=== PATIENT | female | born 1955 | race Caucasian/White ===

== ENCOUNTER 2018-08-18 06:57 | Inpatient (IN) | payer BC ==
[~2018-08-18] VITALS: Ht 160 cm; Wt 52.0 kg
[2018-08-18 08:20] VITALS: PULSE 79
[2018-08-18] MEDS ORDERED: NACL 0.9% 3 ML SYG IV SCH (09:30)
[2018-08-18] MEDS ORDERED: ONDANSETRON 4 MG INJ IV PRN (09:30)
[2018-08-18 10:00] VITALS: BP 108/67; PULSE 67; RESP 16
[2018-08-18] MEDS ORDERED: ALBUTEROL 0.083% (NEB) 2.5 MG/3 ML AMP HHN PRN (10:00)
--- NOTE | 2018-08-18 10:17 | HP ---
Date/Time of Note Date/Time of Note DATE: 08/18/18 TIME: 10:04 Assessment/Plan VTE Prophylaxis SCD applied (from Nsg): Yes Pharmacological prophylaxis: LMWH Assessment/Plan Assessment/Plan 1. Acute hypoxic respiratory failure - Patient has been desaturation to the mid 80% with exertion - Pulmonology consultation placed for further recommendations - continue on nebs and steroids. No infectious process appreciated and imaging studies at OSH negative for PNA - continue monitoring O2 saturations and wean as tolerated 2. HTN - continue home medications and adjust as needed 3. Prediabetes - will check A1c - ISS anc accuchecks for now 4. Cough - PRN antitussive 5. Diet - Carb/cardiac 6. DVT ppx - LMWH 7. Disposition - Admit for pulmonology workup given persistent cough, shortness of breath, and hypoxia. HPI/ROS Admit Date/Time Admit Date/Time Aug 18, 2018 at 08:01 Hx of Present Illness 62 yo F with PMH HTN and prediabetes presented to [facility] secondary worsening cough and shortness of breath that has been ongoing since January. Patient states she has been experiencing a cough with clear/yellow productive sputum and occasional episodes of blood tinged. She has associated chest discomfort with the cough that radiates to her back. She denies any fevers, chills, nausea, vo miting, dizziness, history of asthma, or GI symptoms. She does admit to pneumonia 2 years ago but denies any respiratory issues since. She denies any recent sick contact or recent travel. She was seen by a document design specialist in June and prescribed inhalers. She has an appointment on Saturday for follow up but unsure physicians name. She was found hypoxic with O2 saturation 86% on RA at OSH and given neb treatment and supplemental O2 with improvement in symptoms. Patient had CXR that was negative and CTA performed which showed mild interstitial edema. She was given Lasix prior to transfer. EKG were negative for acute ST changes. ROS All 12 systems reviewed and pertinent positives as per HPI. All others negative. Constitutional: febrile; No chills, No fatigue Eyes: No discharge ENT: No congestion Respiratory: cough, pleuritic pain, shortness of breath, sputum, wheezing Cardiovascular: chest pain; No edema, No lightheadedness, No palpitations Gastrointestinal: No pain, No constipation, No diarrhea, No nausea, No vomiting Genitourinary: no complaints Musculoskeletal: back pain; No neck pain Skin: No bruising, No laceration, No rash Neurologic: No confusion, No focal-weakness, No headache, No syncope Endocrine: no complaints Lymphatic: no complaints Psychological: nl mood/affect Immunologic: no complaints PMH/Family/Social Past Medical History Medical History: hypertension, other (prediabetes) Medications Current Medications IV Flush (NS 3 ml) 3 ml PER PROTOCOL IV ; Start 08/18/18 at 09:30; Status UNV Ondansetron HCl (Zofran Inj) 4 mg Q6H PRN IV NAUSEA/VOMITING; Start 08/18/18 at 09:30; Status UNV Acetaminophen (Tylenol Tab) 650 mg Q6H PRN PO .PAIN 1-3 OR TEMP; Start 08/18/18 at 09:30; Status UNV Albuterol (Proventil 0.083% (Neb)) 2.5 mg Q2H RESP THERAPY PRN HHN SHORTNESS OF BREATH; Start 08/18/18 at 10:00; Status UNV Albuterol (Proventil 0.083% (Neb)) 2.5 mg Q6HWA RESP THERAPY HHN ; Start 08/18/18 at 14:00; Status UNV Guaifenesin/ Codeine Phosphate (Robitussin Ac Liquid Cup) 10 ml Q4H PRN PO cough with pain; Start 08/18/18 at 10:00; Status UNV Coded Allergies: No Known Allergy (Unverified , 08/18/18) Past Surgical History Past Surgical Hx: other (MARGARITA) Family History Significant Family History: no pertinent family hx Social History Alcohol Use: none Smoking Status: Never smoker Drug Use: none Exam/Review of Systems Exam Exam General: Patient is laying in bed and answers questions appropriately. distress with coughing due to pain Mentation: Patient is alert and oriented Head: Normocephalic atraumatic Eyes: EOMI, pupils reactive to light Neck: Supple, nontender, midline Respiratory: Diminished air entry, Mild expiratory wheezing, Cardiovascular: regular rate and rhythm, no obvious murmurs Gastrointestinal: soft, non-tender to palpation, bowel sounds heard. no rebound or guarding Neurological: Moves all extremities spontaneously Skin: No new skin lesions Additional Comments Home medications reviewed OSH CXR- negative for acute issues CTA- mild interstitial pulmonary edema TALISHA GORDON MD Aug 18, 2018 10:17
[2018-08-18 10:26] VITALS: Ht 160 cm; Wt 52.0 kg
[2018-08-18] MEDS ORDERED: morphine 2 MG INJ IV PRN (10:30)
[2018-08-18] MEDS ORDERED: KETOROLAC 15 MG INJ IV PRN (10:30)
[2018-08-18] MEDS ORDERED: traMADol 50 MG TAB PO PRN (10:30)
[2018-08-18] MEDS ORDERED: FLUO20CA22 PO (11:22)
[2018-08-18] MEDS ORDERED: MONT10TA24 PO (11:22)
[2018-08-18] MEDS ORDERED: D-ME473S2 PO (11:22)
[2018-08-18] MEDS ORDERED: HYDR25TA6 PO (11:22)
[2018-08-18] MEDS ORDERED: AMLO-147 PO (11:22)
[2018-08-18] MEDS ORDERED: FLUT100B INHALATION (11:22)
[2018-08-18] MEDS ORDERED: ALBU2.5V3 NEB (11:22)
[2018-08-18 12:00] VITALS: PULSE 63
[2018-08-18] MEDS: ACETAMINOPHEN 325 MG TAB PO PRN (12:25)
[2018-08-18] MEDS: ALBUTEROL 0.083% (NEB) 2.5 MG/3 ML AMP HHN SCH ×2 (15:53→20:19)
[2018-08-18] MEDS ORDERED: GLUCOSE GEL 15 GRAM TUBE BUCCAL PRN (18:00)
[2018-08-18] MEDS ORDERED: GLUCOSE GEL 15 GRAM TUBE PO PRN ×2 (18:00)
[2018-08-18] MEDS ORDERED: GLUCAGON 1 MG INJ IM PRN (18:00)
[2018-08-18] MEDS ORDERED: DEXTROSE 50% 50 ML SYRINGE IV PRN ×2 (18:00)
[2018-08-18] MEDS: INSULIN ASPART [NOVOLOG] 3 ML PEN SC SCH ×2 (18:07→21:00)
[2018-08-18 20:31] VITALS: BP 101/57; PULSE 75; RESP 18
[2018-08-18] MEDS: MONTELUKAST 10 MG TAB PO SCH (21:19)
[2018-08-18] MEDS: METHYLPREDNISOLONE 40 MG INJ IV SCH (21:20)
[2018-08-19 01:10] VITALS: BP 102/55; PULSE 68; RESP 18
[2018-08-19 07:14] VITALS: BP 113/70; PULSE 73; RESP 14
[2018-08-19] MEDS: ALBUTEROL 0.083% (NEB) 2.5 MG/3 ML AMP HHN SCH ×3 (07:27→21:30)
[2018-08-19] MEDS: INSULIN ASPART [NOVOLOG] 3 ML PEN SC SCH (07:50)
--- NOTE | 2018-08-19 08:42 | CONS ---
Assessment/Plan Assessment/Plan Assessment/Plan (Daily) Chest x-ray was reviewed from [facility] which is essentially unremarkable. CT chest showing very minimal interstitial prominence. Assessment recommendations; 1. Patient admitted for symptoms of bronchitis spanning 5 months possibly from underlying asthma. Clinically improving on current treatment regimen. 2. History of hypertension. 3. History of prediabetes. Continue current supportive care. Patient improving on current treatment regimen. Consultation Date/Type/Reason Admit Date/Time Aug 18, 2018 at 08:01 Date of Consultation: Aug 19, 2018 Type of Consult Pulmonary Patient is a pleasant 62-year-old lady who was transferred from [facility] due to insurance reasons, where she presented with a few months history of wheezing, coughing and sputum production. Patient also has had episodes of blood-tinged sputum after several bouts of hacking cough. She denies any fever, chills, chest pain, body aches or myalgias. By the time I saw her, patient appears comfortable and according to her she has improved on current treatment regimen. Cough as well as wheezing are improving. Denies any further hemoptysis. Past medical history; 1. History of hypertension 2. Prediabetes. Medications; reviewed. Allergies; none. Social history; patient never smoked. Family history; noncontributory. Occupational history; patient has been a housewife. Review of systems; denies any headache, seizures, visual changes. Any sinus symptoms. Coughing, chest congestion are improving. Denies any further hemoptysis. Denies any body aches or myalgias, denies any fever. Denies any abdominal pain, nausea vomiting. Denies any melena or hematochezia. Denies any edema orthopnea. Any weight loss. Denies any urinary symptoms. General exam; elderly female, awake alert, currently no distress. Date/Time of Note DATE: 08/19/18 TIME: 08:38 Past Medical History Medical History: hypertension, other (prediabetes) Home Meds Reported Medications Albuterol Sulfate* (Albuterol Sulfate* Neb) 0.083%-3 Ml Neb, 2.5 MG NEB Q4H, #30 VIAL 08/18/18 Fluticasone Furoate (Arnuity Ellipta) 100 Mcg Blst.w.dev, 100 MCG INHALATION DAILY, #1 INHALER 08/18/18 Dextromethorphan Hb-Promethazine Hcl* (Promethazine DM* Syrup) 473 Ml Syrup, 5 ML PO Q6 PRN for COUGH, ML 08/18/18 Hydrochlorothiazide* (Hydrochlorothiazide*) 25 Mg Tab, 25 MG PO DAILY, #30 TAB 08/18/18 Fluoxetine Hcl* (Fluoxetine Hcl*) 20 Mg Capsule, 20 MG PO DAILY, CAP 08/18/18 Montelukast Sodium* (Montelukast Sodium*) 10 Mg Tablet, 10 MG PO QHS, #30 TAB 08/18/18 Amlodipine Besylate* (Amlodipine Besylate*) 10 Mg Tablet, 10 MG PO DAILY, #30 TAB 08/18/18 Medications Current Medications IV Flush (NS 3 ml) 3 ml PER PROTOCOL IV ; Start 08/18/18 at 09:30 Ondansetron HCl (Zofran Inj) 4 mg Q6H PRN IV NAUSEA/VOMITING; Start 08/18/18 at 09:30 Acetaminophen (Tylenol Tab) 650 mg Q6H PRN PO .PAIN 1-3 OR TEMP Last administ ered on 08/18/18at 12:25; Admin Dose 650 MG; Start 08/18/18 at 09:30 Albuterol (Proventil 0.083% (Neb)) 2.5 mg Q2H RESP THERAPY PRN HHN SHORTNESS OF BREATH; Start 08/18/18 at 10:00 Albuterol (Proventil 0.083% (Neb)) 2.5 mg Q6HWA RESP THERAPY HHN Last administered on 08/19/18at 07:27; Admin Dose 2.5 MG; Start 08/18/18 at 14:00 Guaifenesin/ Codeine Phosphate (Robitussin Ac Liquid Cup) 10 ml Q4H PRN PO cough with pain; Start 08/18/18 at 10:00 Ketorolac Tromethamine (Toradol) 15 mg Q6H PRN IV PAIN; Start 08/18/18 at 10:30; Stop 08/21/18 at 10:29 Tramadol HCl (Ultram) 50 mg Q6H PRN PO MODERATE PAIN LEVEL 4-6; Start 08/18/18 at 10:30 Morphine Sulfate (morphine) 2 mg Q4H PRN IV SEVERE PAIN LEVEL 7-10; Start 08/18/18 at 10:30 Amlodipine Besylate (Norvasc) 10 mg DAILY PO ; Start 08/19/18 at 09:00 Fluoxetine HCl (Prozac) 20 mg DAILY PO ; Start 08/19/18 at 09:00 Montelukast Sodium (Singulair) 10 mg QHS PO Last administered on 08/18/18at 21:19; Admin Dose 10 MG; Start 08/18/18 at 21:00 Miscellaneous Information 100 mcg DAILY INHALATION ; Start 08/19/18 at 09:00; Status UNV Insulin Aspart (Novolog Insulin Pen) NOVOLOG *MILD* ALGORITHM WITH MEALS BEDTIME SC ; Start 08/18/18 at 18:30 Methylprednisolone Sodium Succinate (Solu-Medrol) 40 mg Q12 IV Last administered on 08/18/18at 21:20; Admin Dose 40 MG; Start 08/18/18 at 21:00 Miscellaneous Information 1 ea NOTE XX ; Start 08/18/18 at 18:00 Glucose (Glutose) 15 gm Q15M PRN PO DECREASED GLUCOSE; Start 08/18/18 at 18:00 Glucose (Glutose) 22.5 gm Q15M PRN PO DECREASED GLUCOSE; Start 08/18/18 at 18:00 Dextrose (D50w Syringe) 25 ml Q15M PRN IV DECREASED GLUCOSE; Start 08/18/18 at 18:00 Dextrose (D50w Syringe) 50 ml Q15M PRN IV DECREASED GLUCOSE; Start 08/18/18 at 18:00 Glucagon (Glucagen) 1 mg Q15M PRN IM DECREASED GLUCOSE; Start 08/18/18 at 18:00 Glucose (Glutose) 15 gm Q15M PRN BUCCAL DECREASED GLUCOSE; Start 08/18/18 at 18:00 Allergies: Coded Allergies: No Known Allergy (Unverified , 08/18/18) Past Surgical History Past Surgical Hx: other (MARGARITA) Social History Alcohol Use: none Smoking Status: Never smoker Drug Use: none Exam/Review of Systems Exam Vitals Vital Signs Date Temp Pulse Resp B/P (MAP) Pulse Ox O2 O2 Flow FiO2 Time Delivery Rate 08/19/18 65 20 98 Nasal 3.0 07:27 Cannula 08/19/18 98.3 113/70 07:14 (84) 08/18/18 30 20:19 Intake and Output 08/18/18 08/18/18 08/19/18 1515:00 23:00 07:00 IntakeIntake Total 125 ml 240 ml BalanceBalance 125 ml 240 ml Exam H EENT exam; supple neck, no JVD. No lymphadenopathy. Midline trachea. No thyromegaly. Pharynx is clear. No neck bruits. Patient has fair dentition. Nasal passages are normal. Chest exam; diminished but clear breath sounds. S1-S2 audible, no murmurs. Regular rhythm. Abdomen exam; soft, no organomegaly. Bowel sounds audible. Extremity exam; no peripheral edema clubbing. TOWEL FOLDER exam; no focal deficit. Results Result Diagram: 08/19/18 0446 08/19/18 0446 Results 24hrs Laboratory Tests Test 08/18/18 10:13 08/18/18 18:05 08/18/18 21:15 08/19/18 04:46 Bedside Glucose 138 117 126 White Blood Count 10.2 Red Blood Count 4.44 Hemoglobin 14.1 Hematocrit 41.5 Mean Corpuscular Volume 93.5 Mean Corpuscular 31.8 Hemoglobin Mean Corpuscular 34.0 Hemoglobin Concent Red Cell Distribution 13.3 Width Platelet Count 350 Mean Platelet Volume 9.9 Immature Granulocytes % 0.400 Neutrophils % 87.1 H Lymphocytes % 10.9 L Monocytes % 1.5 Eosinophils % 0.0 Basophils % 0.1 Nucleated Red Blood 0.0 Cells % Immature Granulocytes # 0.040 H Neutrophils # 8.9 H Lymphocytes # 1.1 Monocytes # 0.2 L Eosinophils # 0.0 Basophils # 0.0 Nucleated Red Blood 0.0 Cells # Sodium Level 144 Potassium Level 3.8 Chloride Level 104 Carbon Dioxide Level 27 Anion Gap 13 Blood Urea Nitrogen 26 H Creatinine 0.76 Est Glomerular Filtrat > 60 Rate mL/min Glucose Level 139 Hemoglobin A1c 5.3 Calcium Level 9.8 Magnesium Level 2.4 Total Bilirubin 0.1 L Direct Bilirubin 0.00 Indirect Bilirubin 0.1 Aspartate Amino 27 Transf (AST/SGOT) Alanine 23 Aminotransferase (ALT/SG PT) Alkaline Phosphatase 80 Total Protein 7.2 Albumin 4.0 Globulin 3.20 Albumin/Globulin Ratio 1.25 Test 08/19/18 08:30 Bedside Glucose 120 Medications Medication Current Medications IV Flush (NS 3 ml) 3 ml PER PROTOCOL IV ; Start 08/18/18 at 09:30 Ondansetron HCl (Zofran Inj) 4 mg Q6H PRN IV NAUSEA/VOMITING; Start 08/18/18 at 09:30 Acetaminophen (Tylenol Tab) 650 mg Q6H PRN PO .PAIN 1-3 OR TEMP Last administered on 08/18/18at 12:25; Admin Dose 650 MG; Start 08/18/18 at 09:30 Albuterol (Proventil 0.083% (Neb)) 2.5 mg Q2H RESP THERAPY PRN HHN SHORTNESS OF BREATH; Start 08/18/18 at 10:00 Albuterol (Proventil 0.083% (Neb)) 2.5 mg Q6HWA RESP THERAPY HHN Last administered on 08/19/18at 07:27; Admin Dose 2.5 MG; Start 08/18/18 at 14:00 Guaifenesin/ Codeine Phosphate (Robitussin Ac Liquid Cup) 10 ml Q4H PRN PO cough with pain; Start 08/18/18 at 10:00 Ketorolac Tromethamine (Toradol) 15 mg Q6H PRN IV PAIN; Start 08/18/18 at 10:30; Stop 08/21/18 at 10:29 Tramadol HCl (Ultram) 50 mg Q6H PRN PO MODERATE PAIN LEVEL 4-6; Start 08/18/18 at 10:30 Morphine Sulfate (morphine) 2 mg Q4H PRN IV SEVERE PAIN LEVEL 7-10; Start 08/18/18 at 10:30 Amlodipine Besylate (Norvasc) 10 mg DAILY PO ; Start 08/19/18 at 09:00 Fluoxetine HCl (Prozac) 20 mg DAILY PO ; Start 08/19/18 at 09:00 Montelukast Sodium (Singulair) 10 mg QHS PO Last administered on 08/18/18at 21:19; Admin Dose 10 MG; Start 08/18/18 at 21:00 Miscellaneous Information 100 mcg DAILY INHALATION ; Start 08/19/18 at 09:00; Status UNV Insulin Aspart (Novolog Insulin Pen) NOVOLOG *MILD* ALGORITHM WITH MEALS BEDTIME SC ; Start 08/18/18 at 18:30 Methylprednisolone Sodium Succinate (Solu-Medrol) 40 mg Q12 IV Last administered on 08/18/18at 21:20; Admin Dose 40 MG; Start 4/1/19 at 21:00 Miscellaneous Information 1 ea NOTE XX ; Start 08/18/18 at 18:00 Glucose (Glutose) 15 gm Q15M PRN PO DECREASED GLUCOSE; Start 08/18/18 at 18:00 Glucose (Glutose) 22.5 gm Q15M PRN PO DECREASED GLUCOSE; Start 08/18/18 at 18:00 Dextrose (D50w Syringe) 25 ml Q15M PRN IV DECREASED GLUCOSE; Start 08/18/18 at 18:00 Dextrose (D50w Syringe) 50 ml Q15M PRN IV DECREASED GLUCOSE; Start 08/18/18 at 18:00 Glucagon (Glucagen) 1 mg Q15M PRN IM DECREASED GLUCOSE; Start 08/18/18 at 18:00 Glucose (Glutose) 15 gm Q15M PRN BUCCAL DECREASED GLUCOSE; Start 08/18/18 at 18:00 WENDIE SALCIDO Aug 19, 2018 08:42
--- NOTE | 2018-08-19 08:52 | PN ---
Date/Time of Note Date/Time of Note DATE: 08/19/18 TIME: 08:52 Assessment/Plan VTE Prophylaxis Risk score (from Nsg)>0 risk: 1 SCD applied (from Nsg): Yes Pharmacological prophylaxis: LMWH Lines/Catheters IV Catheter Type (from Nrsg): Saline Lock Urinary Cath still in place: No Assessment/Plan Assessment/Plan 1. Acute hypoxic respiratory failure- improving - Will taper steroids and continue Zpack per Pulm recommendations - Doing well on room air - Pulm on board and appreciate recommendations - Continue on nebs 2. HTN - continue home medications and adjust as needed 3. Prediabetes - A1c noted. no ISS needed 4. Cough - PRN antitussive 5. Disposition - If no acute issues, will d/c home in the next 24-48 hours Result Diagram: 08/19/18 0446 08/19/18 0446 Results 24hrs Laboratory Tests Test 08/18/18 10:13 08/18/18 18:05 08/18/18 21:15 08/19/18 04:46 Bedside Glucose 138 117 126 White Blood Count 10.2 Red Blood Count 4.44 Hemoglobin 14.1 Hematocrit 41.5 Mean Corpuscular Volume 93.5 Mean Corpuscular 31.8 Hemoglobin Mean Corpuscular 34.0 Hemoglobin Concent Red Cell Distribution 13.3 Width Platelet Count 350 Mean Platelet Volume 9.9 Immature Granulocytes % 0.400 Neutrophils % 87.1 H Lymphocytes % 10.9 L Monocytes % 1.5 Eosinophils % 0.0 Basophils % 0.1 Nucleated Red Blood 0.0 Cells % Immature Granulocytes # 0.040 H Neutrophils # 8.9 H Lymphocytes # 1.1 Monocytes # 0.2 L Eosinophils # 0.0 Basophils # 0.0 Nucleated Red Blood 0.0 Cells # Sodium Level 144 Potassium Level 3.8 Chloride Level 104 Carbon Dioxide Level 27 Anion Gap 13 Blood Urea Nitrogen 26 H Creatinine 0.76 Est Glomerular Filtrat > 60 Rate mL/min Glucose Level 139 Hemoglobin A1c 5.3 Calcium Level 9.8 Magnesium Level 2.4 Total Bilirubin 0.1 L Direct Bilirubin 0.00 Indirect Bilirubin 0.1 Aspartate Amino 27 Transf (AST/SGOT) Alanine 23 Aminotransferase (ALT/SG PT) Alkaline Phosphatase 80 Total Protein 7.2 Albumin 4.0 Globulin 3.20 Albumin/Globulin Ratio 1.25 Test 08/19/18 08:30 Bedside Glucose 120 Subjective 24 Hr Interval Summary Free Text/Dictation Patient feeling better but still with cough. Less SOB this am. No acute ove rnight events. Exam/Review of Systems Exam Vitals Vital Signs Date Temp Pulse Resp B/P (MAP) Pulse Ox O2 O2 Flow FiO2 Time Delivery Rate 08/19/18 65 20 98 Nasal 3.0 07:27 Cannula 08/19/18 98.3 113/70 07:14 (84) 08/18/18 30 20:19 Intake and Output 08/18/18 08/18/18 08/19/18 1515:00 23:00 07:00 IntakeIntake Total 125 ml 240 ml BalanceBalance 125 ml 240 ml Exam General: Patient is laying in bed and answers questions appropriately. no acute distress Neck: Supple, nontender, midline Respiratory: Diminished air entry, no wheezing or rhonchi Cardiovascular: regular rate and rhythm, no obvious murmurs Gastrointestinal: soft, non-tender to palpation, bowel sounds heard. no rebound or guarding Neurological: Moves all extremities spontaneously Skin: No new skin lesions Results Results 24hrs Laboratory Tests Test 08/18/18 10:13 08/18/18 18:05 08/18/18 21:15 08/19/18 04:46 Bedside Glucose 138 117 126 White Blood Count 10.2 Red Blood Count 4.44 Hemoglobin 14.1 Hematocrit 41.5 Mean Corpuscular Volume 93.5 Mean Corpuscular 31.8 Hemoglobin Mean Corpuscular 34.0 Hemoglobin Concent Red Cell Distribution 13.3 Width Platelet Count 350 Mean Platelet Volume 9.9 Immature Granulocytes % 0.400 Neutrophils % 87.1 H Lymphocytes % 10.9 L Monocytes % 1.5 Eosinophils % 0.0 Basophils % 0.1 Nucleated Red Blood 0.0 Cells % Immature Granulocytes # 0.040 H Neutrophils # 8.9 H Lymphocytes # 1.1 Monocytes # 0.2 L Eosinophils # 0.0 Basophils # 0.0 Nucleated Red Blood 0.0 Cells # Sodium Level 144 Potassium Level 3.8 Chloride Level 104 Carbon Dioxide Level 27 Anion Gap 13 Blood Urea Nitrogen 26 H Creatinine 0.76 Est Glomerular Filtrat > 60 Rate mL/min Glucose Level 139 Hemoglobin A1c 5.3 Calcium Level 9.8 Magnesium Level 2.4 Total Bilirubin 0.1 L Direct Bilirubin 0.00 Indirect Bilirubin 0.1 Aspartate Amino 27 Transf (AST/SGOT) Alanine 23 Aminotransferase (ALT/SG PT) Alkaline Phosphatase 80 Total Protein 7.2 Albumin 4.0 Globulin 3.20 Albumin/Globulin Ratio 1.25 Test 08/19/18 08:30 Bedside Glucose 120 Medications Medication Current Medications IV Flush (NS 3 ml) 3 ml PER PROTOCOL IV ; Start 08/18/18 at 09:30 Ondansetron HCl (Zofran Inj) 4 mg Q6H PRN IV NAUSEA/VOMITING; Start 08/18/18 at 09:30 Acetaminophen (Tylenol Tab) 650 mg Q6H PRN PO .PAIN 1-3 OR TEMP Last administered on 08/18/18at 12:25; Admin Dose 650 MG; Start 08/18/18 at 09:30 Albuterol (Proventil 0.083% (Neb)) 2.5 mg Q2H RESP THERAPY PRN HHN SHORTNESS OF BREATH; Start 08/18/18 at 10:00 Albuterol (Proventil 0.083% (Neb)) 2.5 mg Q6HWA RESP THERAPY HHN Last administered on 08/19/18at 07:27; Admin Dose 2.5 MG; Start 08/18/18 at 14:00 Guaifenesin/ Codeine Phosphate (Robitussin Ac Liquid Cup) 10 ml Q4H PRN PO cough with pain; Start 08/18/18 at 10:00 Ketorolac Tromethamine (Toradol) 15 mg Q6H PRN IV PAIN; Start 08/18/18 at 10:30; Stop 08/21/18 at 10:29 Tramadol HCl (Ultram) 50 mg Q6H PRN PO MODERATE PAIN LEVEL 4-6; Start 08/18/18 at 10:30 Morphine Sulfate (morphine) 2 mg Q4H PRN IV SEVERE PAIN LEVEL 7-10; Start 08/18/18 at 10:30 Amlodipine Besylate (Norvasc) 10 mg DAILY PO ; Start 08/19/18 at 09:00 Fluoxetine HCl (Prozac) 20 mg DAILY PO ; Start 08/19/18 at 09:00 Montelukast Sodium (Singulair) 10 mg QHS PO Last administered on 08/18/18at 21:19; Admin Dose 10 MG; Start 08/18/18 at 21:00 Insulin Aspart (Novolog Insulin Pen) NOVOLOG *MILD* ALGORITHM WITH MEALS BEDTIME SC ; Start 08/18/18 at 18:30 Methylprednisolone Sodium Succinate (Solu-Medrol) 40 mg Q12 IV Last administered on 08/18/18at 21:20; Admin Dose 40 MG; Start 08/18/18 at 21:00 Miscellaneous Information 1 ea NOTE XX ; Start 08/18/18 at 18:00 Glucose (Glutose) 15 gm Q15M PRN PO DECREASED GLUCOSE; Start 08/18/18 at 18:00 Glucose (Glutose) 22.5 gm Q15M PRN PO DECREASED GLUCOSE; Start 08/18/18 at 18:00 Dextrose (D50w Syringe) 25 ml Q15M PRN IV DECREASED GLUCOSE; Start 08/18/18 at 18:00 Dextrose (D50w Syringe) 50 ml Q15M PRN IV DECREASED GLUCOSE; Start 08/18/18 at 1 8:00 Glucagon (Glucagen) 1 mg Q15M PRN IM DECREASED GLUCOSE; Start 08/18/18 at 18:00 Glucose (Glutose) 15 gm Q15M PRN BUCCAL DECREASED GLUCOSE; Start 08/18/18 at 18:00 Mometasone Furoate (Asmanex) 1 puff DAILY INH ; Start 08/19/18 at 09:00 Azithromycin (Zithromax) 250 mg DAILY PO ; Start 08/19/18 at 09:00; Status UNTALISHA RODRIGUEZ MD Aug 19, 2018 08:52
[2018-08-19] MEDS ORDERED: NON-FORMULARY/PATIENT OWN MED (Fluticasone Furoate (Arnuity Ellipta) 100 MCG) INHALATION SCH (09:00)
[2018-08-19] MEDS: AZITHROMYCIN 250 MG TAB PO SCH (10:01)
[2018-08-19] MEDS: METHYLPREDNISOLONE 40 MG INJ IV SCH (10:01)
[2018-08-19] MEDS: AMLODIPINE 10 MG TAB PO SCH (10:02)
[2018-08-19] MEDS: FLUOXETINE 20 MG CAP PO SCH (10:02)
--- NOTE | 2018-08-19 10:44 | RADRPT ---
Echocardiogram Report Patient Name: CURT TREJOPatient ID: [id number] : 1955 (62y 8m)Study Date: 08/18/2018 1:46:50 PM Gender: FAccession #: [id number] Tech: Saulo Gonzalez [facility] Location: [facility] Ref.Physician: TALISHA GORDON Height(Cm): BSA: Weight(Kg): Quality: AdequateAccount #: Procedures: Echocardiographic Report: Transthoracic echocardiogram with complete 2D, M-Mode, and doppler examination. Indications: Pulmonary Edema. Measurements: 2D/M Mode Doppler Measurement Value Normal Range Measurement Value Normal Range LVIDd 2D 4.5 [ 3.8 - 5.2 ] cm AV Peak Tyron 1.3 [ 100.0 - 170.0 ] cm/sec LVIDs 2D 2.3 [ 2.2 - 3.5 ] cm AV Peak PG 6.0 [ 2.0 - 9.0 ] mmHg LVPWd 2D 1.0 [ 0.6 - 0.9 ] cm LVOT Peak Tyron 1.0 [ 70.0 - 110.0 ] cm/sec IVSd 2D 0.9 [ 0.6 - 0.9 ] cm LVOT Peak PG 4.0 [ 2.0 - 6.0 ] mmHg IVS/LVPW 2D 1.0 ratio MV E Peak Tyron 0.7 [ 60.0 - 130.0 ] cm/sec AoR Diam 2D 2.7 [ 2.3 - 3.1 ] cm MV A Peak Tyron 0.7 [ 100.0 - 120.0 ] cm/sec LA/Ao 2D 1 ratio MV E/A 1.0 [ 0.8 - 1.5 ] ratio LA Dimen 2D 2.3 [ 2.7 - 3.8 ] cm MV Decel Time 239 [ 104 - 258 ] msec Lat E` Tyron 0.1 [ 10.0 - 15.0 ] cm/sec MV E/A 1.0 [ 0.8 - 1.5 ] ratio TR Peak Tyron 2.2 [ 100.0 - 280.0 ] cm/sec TR Peak PG 19.0 mmHg RVSP 29.0 [ 10.0 - 36.0 ] mmHg RA Pressure 10.0 mmHg Findings: Left Ventricle: Lower limits of normal systolic function. Normal left ventricular cavity size. Normal left ventricular wall thickness. Mild global left ventricular systolic dysfunction. Ejection fraction is visually estimated at 50 %. Tissue Doppler/Mitral Doppler indices are consistent with impaired relaxation (Stage I diastolic dysfunction). Right Ventricle: Normal right ventricular size. Normal right ventricular systolic function. Left Atrium: The left atrium is normal in size. Right Atrium: The right atrium is normal in size. Mitral Valve: Mitral valve leaflets appear mildly thickened. Mild mitral annular calcification. Trace mitral regurgitation. Aortic Valve: Normal appearance of the aortic valve. No significant aortic stenosis or insufficiency. Tricuspid Valve: Normal appearance of the tricuspid valve. Estimated peak PA systolic pressure 29 mmHg. There is trace tricuspid regurgitation. Pulmonic Valve: Pulmonic valve not well visualized. Pericardium: Normal pericardium with no significant pericardial effusion. Aorta: Normal aortic root. IVC: Normal size and normal respiratory collapse consistent with normal right atrial pressure. Conclusions: Lower limits of normal systolic function. Normal left ventricular cavity size. Normal left ventricular wall thickness. Mild global left ventricular systolic dysfunction. Ejection fraction is visually estimated at 50 %. Tissue Doppler/Mitral Doppler indices are consistent with impaired relaxation (Stage I diastolic dysfunction). Mitral valve leaflets appear mildly thickened. Mild mitral annular calcification. Trace mitral regurgitation. Normal appearance of the aortic valve. No significant aortic stenosis or insufficiency. Normal appearance of the tricuspid valve. Estimated peak PA systolic pressure 29 mmHg. There is trace tricuspid regurgitation. Electronically Signed By: Rashaad Case 2018-08-19 10:43:59 PDT
[2018-08-19] MEDS: MOMETASONE 0.24 GM INHALER INH SCH (11:55)
[2018-08-19 14:16] VITALS: BP 105/54; PULSE 86; RESP 17
[2018-08-19 20:27] VITALS: BP 110/56; PULSE 83; RESP 18
[2018-08-19] MEDS: MONTELUKAST 10 MG TAB PO SCH (20:38)
[2018-08-20 02:02] VITALS: BP 105/55; PULSE 65; RESP 18
[2018-08-20] MEDS: ACETAMINOPHEN 325 MG TAB PO PRN (04:11)
[2018-08-20] MEDS: GUAIFENESIN/CODEINE 5ML CUP PO PRN ×3 (04:18→16:42)
[2018-08-20 07:48] VITALS: BP 116/71; PULSE 71; RESP 18
[2018-08-20] MEDS: ALBUTEROL 0.083% (NEB) 2.5 MG/3 ML AMP HHN SCH ×3 (08:21→20:11)
[2018-08-20] MEDS: AZITHROMYCIN 250 MG TAB PO SCH (09:14)
[2018-08-20] MEDS: FLUOXETINE 20 MG CAP PO SCH (09:14)
[2018-08-20] MEDS: METHYLPREDNISOLONE 40 MG INJ IV SCH (09:14)
[2018-08-20] MEDS: AMLODIPINE 10 MG TAB PO SCH (09:14)
[2018-08-20] MEDS: MOMETASONE 0.24 GM INHALER INH SCH (09:15)
--- NOTE | 2018-08-20 09:49 | CONS ---
Assessment/Plan Assessment/Plan Assessment/Plan (Daily) Assessment and recommendations; 1. Patient admitted with a 5-month history of coughing and chest congestion with wheezing likely due to history of asthma with possibly chronic bronchitis, clinically improving on current treatment regimen. 2. History of prediabetes. 3. History of hypertension. Continue current supportive care. Consultation Date/Type/Reason Admit Date/Time Aug 18, 2018 at 08:01 Initial Consult Date 08/19/18 Type of Consult Pulmonary Patient is a pleasant 62-year-old lady who was transferred from [facility] due to insurance reasons, where she presented with a few months history of wheezing, coughing and sputum production. Patient also has had episodes of blood-tinged sputum after several bouts of hacking cough. She denies any fever, chills, chest pain, body aches or myalgias. By the time I saw her, patient appears comfortable and according to her she has improved on current treatment regimen. Cough as well as wheezing are improving. Denies any further hemoptysis. Past medical history; 1. History of hypertension 2. Prediabetes. Medications; reviewed. Allergies; none. Social history; patient never smoked. Family history; noncontributory. Occupational history; patient has been a housewife. Review of systems; denies any headache, seizures, visual changes. Any sinus symptoms. Coughing, chest congestion are improving. Denies any further hemoptysis. Denies any body aches or myalgias, denies any fever. Denies any abdominal pain, nausea vomiting. Denies any melena or hematochezia. Denies any edema orthopnea. Any weight loss. Denies any urinary symptoms. General exam; elderly female, awake alert, currently no distress. Date/Time of Note DATE: 08/20/18 TIME: 09:47 24 HR Interval Summary Free Text/Dictation Patient's condition is improving. Denies any shortness of breath, wheezing. Still complains of dry cough. General exam; elderly female, awake alert, currently no distress. Exam/Review of Systems Exam Vitals Vital Signs Date Temp Pulse Resp B/P (MAP) Pulse Ox O2 O2 Flow FiO2 Time Delivery Rate 08/20/18 59 18 98 Nasal 2.0 08:22 Cannula 08/20/18 97.6 116/71 07:48 (86) 08/18/18 30 20:19 Intake and Output 08/19/18 08/19/18 08/20/18 1515:00 23:00 07:00 IntakeIntake Total 500 ml 425 ml BalanceBalance 500 ml 425 ml Exam H EENT exam; supple neck, no JVD. No lymphadenopathy. Midline trachea. No thyromegaly. Patient has fair dentition. Chest exam; diminished but clear breath sounds. No added sounds. S1-S2 audible, no murmurs. Regular rhythm. Abdomen exam; soft, nontender. No organomegaly. Bowel sounds audible. Extremity exam; peripheral edema clubbing. RIGGING WORKER exam; no focal deficit. Results Result Diagram: 08/19/1844508/19/18445 Medications Medication Current Medications IV Flush (NS 3 ml) 3 ml PER PROTOCOL IV ; Start 08/18/18 at 09:30 Ondansetron HCl (Zofran Inj) 4 mg Q6H PRN IV NAUSEA/VOMITING; Start 08/18/18 at 09:30 Acetaminophen (Tylenol Tab) 650 mg Q6H PRN PO .PAIN 1-3 OR TEMP Last administered on 08/20/18at 04:11; Admin Dose 650 MG; Start 08/18/18 at 09:30 Albuterol (Proventil 0.083% (Neb)) 2.5 mg Q2H RESP THERAPY PRN HHN SHORTNESS OF BREATH; Start 08/18/18 at 10:00 Albuterol (Proventil 0.083% (Neb)) 2.5 mg Q6HWA RESP THERAPY HHN Last administered on 08/20/18at 08:21; Admin Dose 2.5 MG; Start 08/18/18 at 14:00 Guaifenesin/ Codeine Phosphate (Robitussin Ac Liquid Cup) 10 ml Q4H PRN PO cough with pain Last administered on 08/20/18at 04:18; Admin Dose 10 ML; Start 08/18/18 at 10:00 Ketorolac Tromethamine (Toradol) 15 mg Q6H PRN IV PAIN; Start 08/18/18 at 10:30; Stop 08/21/18 at 10:29 Tramadol HCl (Ultram) 50 mg Q6H PRN PO MODERATE PAIN LEVEL 4-6; Start 08/18/18 at 10:30 Morphine Sulfate (morphine) 2 mg Q4H PRN IV SEVERE PAIN LEVEL 7-10; Start 08/18/18 at 10:30 Amlodipine Besylate (Norvasc) 10 mg DAILY PO Last administered on 08/20/18 09:14; Admin Dose 10 MG; Start 08/19/18 at 09:00 Fluoxetine HCl (Prozac) 20 mg DAILY PO Last administered on 08/20/18 09:14; Ad min Dose 20 MG; Start 08/19/18 at 09:00 Montelukast Sodium (Singulair) 10 mg QHS PO Last administered on 08/19/18at 20:38; Admin Dose 10 MG; Start 08/18/18 at 21:00 Miscellaneous Information 1 ea NOTE XX ; Start 08/18/18 at 18:00 Glucose (Glutose) 15 gm Q15M PRN PO DECREASED GLUCOSE; Start 08/18/18 at 18:00 Glucose (Glutose) 22.5 gm Q15M PRN PO DECREASED GLUCOSE; Start 08/18/18 at 18:00 Dextrose (D50w Syringe) 25 ml Q15M PRN IV DECREASED GLUCOSE; Start 08/18/18 at 18:00 Dextrose (D50w Syringe) 50 ml Q15M PRN IV DECREASED GLUCOSE; Start 08/18/18 at 18:00 Glucagon (Glucagen) 1 mg Q15M PRN IM DECREASED GLUCOSE; Start 08/18/18 at 18:00 Glucose (Glutose) 15 gm Q15M PRN BUCCAL DECREASED GLUCOSE; Start 08/18/18 at 18:00 Mometasone Furoate (Asmanex) 1 puff DAILY INH Last administered on 08/20/18 09:15; Admin Dose 1 PUFF; Start 08/19/18 at 09:00 Azithromycin (Zithromax) 250 mg DAILY PO Last administered on 08/20/18 09:14; Admin Dose 250 MG; Start 08/19/18 at 09:00 Methylprednisolone Sodium Succinate (Solu-Medrol) 40 mg DAILY IV Last administered on 08/20/18 09:14; Admin Dose 40 MG; Start 08/20/18 at 09:00 WENDIE SALCIDO Aug 20, 2018 09:49
[2018-08-20 14:03] VITALS: BP 107/61; PULSE 94; RESP 18
--- NOTE | 2018-08-20 17:01 | PN ---
Date/Time of Note Date/Time of Note DATE: 08/20/18 TIME: 16:51 Assessment/Plan VTE Prophylaxis Risk score (from Ns)>0 risk: 2 SCD applied (from Ns): Yes Pharmacological prophylaxis: other Pharm contraindication: low risk/ambulating Lines/Catheters IV Catheter Type (from [facility]): Peripheral IV Urinary Cath still in place: No Assessment/Plan Assessment/Plan 1. Chronic cough and shortness of breath, repeat CT chest 2. HTN, controlled 3. GERD, protonix Result Diagram: 08/19/1844508/19/18445 Exam/Review of Systems Exam Vitals Vital Signs Date Temp Pulse Resp B/P (MAP) Pulse Ox O2 O2 Flow FiO2 Time Delivery Rate 08/20/18 98.3 94 18 107/61 96 Room Air 14:03 (76) Nasal Cannula 08/20/18 2.0 08:22 08/18/18 30 20:19 Intake and Output 08/19/18 08/19/18 08/20/18 1515:00 23:00 07:00 IntakeIntake Total 500 ml 425 ml BalanceBalance 500 ml 425 ml Constitutional: alert, oriented, well developed Head: normocephalic, atraumatic Eyes: nl conjunctiva, EOMI, nl lids, PERRL ENMT: nl external ears & nose, nl lips & teeth, nl nasal mucosa & septum Neck: supple, non-tender Respiratory: clear to auscultation, normal air movement; No congested cough, No crackles/rales, No diminished breath sounds, No intercostal retraction, No labored breathing, No respirations, No tactile fremitus, No wheezing, No other Cardiovascular: regular rate and rhythm, nl pulses; No bruits, No diastolic murmur, No edema, No gallop, No irregular rhythm, No jugular venous distention (JVD), No murmurs/extra sounds, No rub, No systolic murmur, No S3, No S4, No other Gastrointestinal: soft, nl liver, spleen, non-tender Musculoskeletal: nl extremities to inspection Extremities: normal pulses; No calf tenderness, No cyanosis, No clubbing, No edema, No pitting pedal edema, No palpable cord, No tenderness, No other Neurological: NETWORK DESKTOP SUPPORT SPECIALIST II-XII intact, nl mental status, nl speech, nl strength Skin: nl turgor Medications Medication Current Medications IV Flush (NS 3 ml) 3 ml PER PROTOCOL IV ; Start 08/18/18 at 09:30 Ondansetron HCl (Zofran Inj) 4 mg Q6H PRN IV NAUSEA/VOMITING; Start 08/18/18 at 09:30 Acetaminophen (Tylenol Tab) 650 mg Q6H PRN PO .PAIN 1-3 OR TEMP Last administered on 08/20/18 04:11; Admin Dose 650 MG; Start 08/18/18 at 09:30 Albuterol (Proventil 0.083% (Neb)) 2.5 mg Q2H RESP THERAPY PRN HHN SHORTNESS OF BREATH; Start 08/18/18 at 10:00 Albuterol (Proventil 0.083% (Neb)) 2.5 mg Q6HWA RESP THERAPY HHN Last administered on 08/20/18 08:21; Admin Dose 2.5 MG; Start 08/18/18 at 14:00 Guaifenesin/ Codeine Phosphate (Robitussin Ac Liquid Cup) 10 ml Q4H PRN PO cough with pain Last administered on 08/20/18at 16:42; Admin Dose 10 ML; Start 08/18/18 at 10:00 Ketorolac Tromethamine (Toradol) 15 mg Q6H PRN IV PAIN; Start 08/18/18 at 10:30; Stop 08/21/18 at 10:29 Tramadol HCl (Ultram) 50 mg Q6H PRN PO MODERATE PAIN LEVEL 4-6; Start 08/18/18 at 10:30 Morphine Sulfate (morphine) 2 mg Q4H PRN IV SEVERE PAIN LEVEL 7-10; Start 08/18/18 at 10:30 Amlodipine Besylate (Norvasc) 10 mg DAILY PO Last administered on 08/20/18 09:14; Admin Dose 10 MG; Start 08/19/18 at 09:00 Fluoxetine HCl (Prozac) 20 mg DAILY PO Last administered on 08/20/18 09:14; Admin Dose 20 MG; Start 08/19/18 at 09:00 Montelukast Sodium (Singulair) 10 mg QHS PO Last administered on 08/19/18at 20:38; Admin Dose 10 MG; Start 08/18/18 at 21:00 Miscellaneous Information 1 ea NOTE XX ; Start 08/18/18 at 18:00 Glucose (Glutose) 15 gm Q15M PRN PO DECREASED GLUCOSE; Start 08/18/18 at 18:00 Glucose (Glutose) 22.5 gm Q15M PRN PO DECREASED GLUCOSE; Start 08/18/18 at 18:00 Dextrose (D50w Syringe) 25 ml Q15M PRN IV DECREASED GLUCOSE; Start 08/18/18 at 18:00 Dextrose (D50w Syringe) 50 ml Q15M PRN IV DECREASED GLUCOSE; Start 08/18/18 at 18:00 Glucagon (Glucagen) 1 mg Q15M PRN IM DECREASED GLUCOSE; Start 08/18/18 at 18:00 Glucose (Glutose) 15 gm Q15M PRN BUCCAL DECREASED GLUCOSE; Start 08/18/18 at 18:00 Mometasone Furoate (Asmanex) 1 puff DAILY INH Last administered on 08/20/18at 09:15; Admin Dose 1 PUFF; Start 08/19/18 at 09:00 Azithromycin (Zithromax) 250 mg DAILY PO Last administered on 08/20/18at 09:14; Admin Dose 250 MG; Start 08/19/18 at 09:00 Methylprednisolone Sodium Succinate (Solu-Medrol) 40 mg DAILY IV Last administered on 08/20/18 09:14; Admin Dose 40 MG; Start 08/20/18 at 09:00 SUPRIYA FIGUEROA MD Aug 20, 2018 17:01
[2018-08-20 19:20] VITALS: BP 117/57; PULSE 75; RESP 18
[2018-08-20] MEDS: MONTELUKAST 10 MG TAB PO SCH (21:00)
[2018-08-21] MEDS ORDERED: PANTOPRAZOLE (EC) 40 MG TAB PO SCH (06:00)
[2018-08-21 08:19] VITALS: BP 126/63; PULSE 63; RESP 18
[2018-08-21] MEDS: ALBUTEROL 0.083% (NEB) 2.5 MG/3 ML AMP HHN SCH ×2 (08:48→14:22)
[2018-08-21] MEDS ORDERED: AMLODIPINE 5 MG TAB PO SCH (09:00)
[2018-08-21] MEDS: METHYLPREDNISOLONE 40 MG INJ IV SCH (09:27)
[2018-08-21] MEDS: MOMETASONE 0.24 GM INHALER INH SCH (09:28)
[2018-08-21] MEDS: FLUOXETINE 20 MG CAP PO SCH (09:29)
[2018-08-21] MEDS: AZITHROMYCIN 250 MG TAB PO SCH (09:29)
[2018-08-21 14:16] VITALS: BP 110/59; PULSE 84; RESP 18
[2018-08-21] MEDS ORDERED: AMOX1TAB9 PO (14:27)
[2018-08-21] MEDS ORDERED: PANT40TA4 PO (14:27)
--- NOTE | 2018-08-21 14:34 | DS ---
Date/Time of Note Date/Time of Note DATE: 08/21/18 TIME: 14:28 Discharge Summary Admission/Discharge Info Admit Date/Time Aug 18, 2018 at 08:01 Discharge Date/Time Discharge Diagnosis 1. Chronic bronchitis, augmentin 7 days, follow up with pulmonology 2. HTN, controlled 3. GERD, protonix Patient Condition: Stable Procedures PROCEDURE: High Resolution CT Chest without contrast. CLINICAL INDICATION: Shortness of breath . TECHNIQUE: CT scan of the chest without contrast was performed on a multidetector high-resolution CT scanner with both inspiration and expiration phase of respiration. Coronal and sagittal reformatted images were obtained from the axial source images. DICOM images are available. CTDIvol 15.01 mGy, and DLP 249.41 mGy.cm. One or more of the following dose reduction techniques were used: - Automated exposure control. - Adjustment of the mA and/or kV according to patient size. - Use of iterative reconstruction technique. COMPARISON: None FINDINGS: Lungs: Mosaic attenuation of the bilateral lungs with scattered regions of lucency. Bilateral apical pleural parenchymal scarring. Mild central bronchial wall thickening. Pleura: Normal. Mediastinum: Normal. Cardiovascular: Normal. Lymph nodes: No enlarged lymphadenopathy. Musculoskeletal: Normal. Upper abdomen: Normal. IMPRESSION: Mosaic attenuation with scattered regions of lucency of the bilateral lungs. Findings may represent small airways disease with air trapping and/or mild centrilobular emphysema. Mild central bronchial wall thickening may represent chronic inflammatory changes of bronchitis. Bilateral apical pleural parenchymal scarring. RPTAT: [facility] Physician Júnior Date Time Electronically viewed and signed by Wander Felder Physician on 08/21/2018 10:55 Hospital Course 62 yo F with PMH HTN and prediabetes presented to [facility] secondary worsening cough and shortness of breath that has been ongoing since January. Patient states she has been experiencing a cough with clear/yellow productive sputum and occasional episodes of blood tinged. She has associated chest discomfort with the cough that radiates to her back. She denies any fevers, chills, nausea, vomiting, dizziness, history of asthma, or GI symptoms. She does admit to pneumonia 2 years ago but denies any respiratory issues since. She denies any recent sick contact or recent travel. She was seen by a coremaker experimental in June and prescribed inhalers. She has an appointment on Saturday for follow up but unsure physicians name. She was found hypoxic with O2 saturation 86% on RA at OSH and given neb treatment and supplemental O2 with improvement in symptoms. Patient had CXR that was negative and CTA performed which showed mild interstitial edema. She was given Lasix prior to transfer. EKG were negative for acute ST changes. Patient is main complaint is coughing for a few months. physical exam no wheezing. CT scan indicates Mosaic attenuation of the bilateral lungs with scattered regions of lucency. Bilateral apical pleural parenchymal scarring. Mild central bronchial wall thickening. Likely chronic bronchitis. I will keep her on one week oral antibiotics and have her follow up with pulmonology outpatient. Oziel has heartburns that I start her on protonix. Home Meds Active Scripts Amoxicillin/Potassium Clav (Amox-Clav 500-125 mg Tablet) 500-125 mg Tab, 1 TAB P O BID for 7 Days, TAB Prov:SUPRIYA FIGUEROA MD 08/21/18 Pantoprazole* (Pantoprazole*) 40 Mg Tablet.dr, 40 MG PO DAILY@06 for 30 Days Prov:SUPRIYA FIGUEROA MD 08/21/18 Reported Medications Albuterol Sulfate* (Albuterol Sulfate* Neb) 0.083%-3 Ml Neb, 2.5 MG NEB Q4H, #30 VIAL 08/18/18 Fluticasone Furoate (Arnuity Ellipta) 100 Mcg Blst.w.dev, 100 MCG INHALATION DAILY, #1 INHALER 08/18/18 Dextromethorphan Hb-Promethazine Hcl* (Promethazine DM* Syrup) 473 Ml Syrup, 5 ML PO Q6 PRN for COUGH, ML 08/18/18 Hydrochlorothiazide* (Hydrochlorothiazide*) 25 Mg Tab, 25 MG PO DAILY, #30 TAB 08/18/18 Fluoxetine Hcl* (Fluoxetine Hcl*) 20 Mg Capsule, 20 MG PO DAILY, CAP 08/18/18 Montelukast Sodium* (Montelukast Sodium*) 10 Mg Tablet, 10 MG PO QHS, #30 TAB 08/18/18 Amlodipine Besylate* (Amlodipine Besylate*) 10 Mg Tablet, 10 MG PO DAILY, #30 TAB 08/18/18 Follow-up Plan PCP and pulmonology in one week Primary Care Provider Not On Staff Doctor Pending Labs Laboratory Tests Test 08/21/18 04:41 White Blood Count 10.2 10^3/ul (4.8-10.8) Red Blood Count 4.28 10^6/ul (4.20-5.40) Hemoglobin 13.4 g/dl (12.0-16.0) Hematocrit 40.5 % (37.0-47.0) Mean Corpuscular Volume 94.6 fl (82.0-101.0) Mean Corpuscular Hemoglobin 31.3 pg (29.0-33.0) Mean Corpuscular Hemoglobin Concent 33.1 g/dl (32.0-37.0) Red Cell Distribution Width 13.1 % (11.5-14.5) Platelet Count 328 10^3/UL (140-415) Mean Platelet Volume 9.5 fl (7.4-10.4) Immature Granulocytes % 0.600 % (0.001-0.429) Neutrophils % 69.1 % (39.0-77.0) Lymphocytes % 23.9 % (15.0-51.0) Monocytes % 6.1 % (0.0-11.0) Eosinophils % 0.0 % (0.0-7.0) Basophils % 0.3 % (0.0-2.0) Nucleated Red Blood Cells % 0.0 /100WBC (0.0-0.0) Immature Granulocytes # 0.060 10^3/ul (0.0-0.031) Neutrophils # 7.1 10^3/ul (1.6-7.5) Lymphocytes # 2.4 10^3/ul (0.8-2.9) Monocytes # 0.6 10^3/ul (0.3-0.9) Eosinophils # 0.0 10^3/ul (0.0-0.5) Basophils # 0.0 10^3/ul (0.0-0.1) Nucleated Red Blood Cells # 0.0 10^3/ul (0.0-0.0) Sodium Level 141 mmol/L (135-144) Potassium Level 4.0 mmol/L (3.5-5.1) Chloride Level 109 mmol/L (97-110) Carbon Dioxide Level 27 mmol/L (21-31) Anion Gap 5 (5-13) Blood Urea Nitrogen 16 mg/dl (7-20) Creatinine 0.62 mg/dl (0.44-1.00) Est Glomerular Filtrat Rate mL/min > 60 mL/min (>60) Glucose Level 89 mg/dl (70-220) Calcium Level 9.5 mg/dl (8.4-10.2) SUPRIYA FIGUEROA MD Aug 21, 2018 14:34
[2018-08-22] MEDS ORDERED: METHYLPREDNISOLONE 40 MG INJ IV SCH (09:00)
== END 2018-08-21 17:25 | disposition home or self-care (01) | DRG 190 ==
LOC: 6WM 08:01 → MS1 12:47
PROVIDERS: ADMIT Internal Medicine; ATTEND Internal Medicine
DX: J42 Unspecified chronic bronchitis (principal); J96.01 Acute respiratory failure with hypoxia; I10 Essential (primary) hypertension; R73.03 Prediabetes; J45.909 Unspecified asthma, uncomplicated; K21.9 Gastro-esophageal reflux disease without esophagitis
CPT/HCPCS: 71250; 80048; 80053; 82962; 83036; 83735; 85025; 93306; 94640; 94664; 94760; 97116; 97162; 97166; 97530; 97535; J1815; J2920